=== PATIENT | female | born 1950 | race Caucasian/White ===

== ENCOUNTER 2020-01-21 09:18 | Day surgery (SDC) | payer MEDICARE ==
[~2020-01-21] VITALS: Ht 165.1 cm; Wt 95.9 kg
[~2020-01-21 09:18] MED LIST: ACET325 PO; AMLO10 PO; ATOR10; Aspir 8181 MG PO; CYCL10 PO; HYDCHL25; IBUP400 PO; LEVSOD100; Prilosec Otc20 MG PO
== END 2020-01-21 10:20 | disposition home or self-care (01) ==
LOC: ORSCSDS 09:18
PROVIDERS: Anesthesiology
PROC: 3E0R33Z Introduction of Anti-inflammatory into Spinal Canal, Percutaneous Approach (ICD-10-PCS; principal; 2020-01-21 10:30)
DX: M51.16 Intervertebral disc disorders with radiculopathy, lumbar region (principal); M54.5 Low back pain; I10 Essential (primary) hypertension; K21.9 Gastro-esophageal reflux disease without esophagitis; E78.5 Hyperlipidemia, unspecified; E11.9 Type 2 diabetes mellitus without complications; Z79.82 Long term (current) use of aspirin; Z79.84 Long term (current) use of oral hypoglycemic drugs; Z79.899 Other long term (current) drug therapy
CPT/HCPCS: J1040

== ENCOUNTER 2024-12-10 09:50 | Day surgery (SDC) | payer OTHER ==
[~2024-12-10] VITALS: Ht 165.1 cm; Wt 91.7 kg
[~2024-12-10 09:50] MED LIST changes: +AMOCLA875 PO; -ATOR10; +ATOR10 PO; +FENO54 PO; -LEVSOD100; +LEVSOD25 PO; +LOSA50 PO; +VISBIOME 112.51 EACH PO
[2024-12-10] MEDS ORDERED: FentaNYL Citrate 50 MCG/ML 2 ML Injection ONE (10:28)
[2024-12-10] MEDS ORDERED: ASPIR 8181 MG PO (10:56)
[2024-12-10] MEDS ORDERED: Ondansetron HCl 2 MG / ML 2ML Vial ONE (11:47)
[2024-12-10] MEDS ORDERED: Dexamethasone Sod Phos 10 MG/ML 1ML VIAL ONE (11:47)
--- NOTE | 2024-12-10 12:31 | NUR ---
12/10/24 1231 Jyoti Abdi PACU ASSESSMENT DONE BY [email or web address]. CHARTED ON [facility].
[2024-12-10 12:49] VITALS: BP 137/64
--- NOTE | 2024-12-10 13:42 | NUR ---
12/10/24 1342 Jyoti Abdi PT. ABLE TO VOID BEFORE DISCHARGE. NO BURNING OR PAIN WITH URINATION. SMALL AMT. RED DRAINAGE ON PERIPAD WHEN DRESSING.
== END 2024-12-10 13:40 | disposition home or self-care (01) ==
LOC: ORSCSDS 09:50
PROVIDERS: Obstetrics & Gynecology
PROC: 0UDB8ZX Extraction of Endometrium, Via Natural or Artificial Opening Endoscopic, Diagnostic (ICD-10-PCS; principal; 2024-12-10 11:30)
DX: R93.89 Abnormal findings on diagnostic imaging of other specified body structures (principal); N84.0 Polyp of corpus uteri; I10 Essential (primary) hypertension; E03.9 Hypothyroidism, unspecified; E78.5 Hyperlipidemia, unspecified; E11.9 Type 2 diabetes mellitus without complications; K21.9 Gastro-esophageal reflux disease without esophagitis; I27.20 Pulmonary hypertension, unspecified; E66.9 Obesity, unspecified; Z68.34 Body mass index [BMI] 34.0-34.9, adult; Z79.82 Long term (current) use of aspirin; Z79.899 Other long term (current) drug therapy
CPT/HCPCS: 82947; 88305; A9270; J1100; J2405; J2704; J3010; J7120